=== PATIENT | female | born 2000 | race African-American/Black ===

== ENCOUNTER 2019-06-27 13:52 | Inpatient (IN) | payer OTHER ==
[2019-06-27 15:54] LABS: BASO % 0.6 % (0-2.0); EOS % 0.4 % (0-4.5); HEMATOCRIT 39.5 % (32.4-45.2); LYMPH % 14.7 % (8-40); MCH 28.5 pg (25.7-33.7); MCHC 32.9 g/dl (32.0-36.0); MEAN CELL VOLUME 86.8 fl (80-96); MEAN PLT VOLUME 8.9 fl (7.5-11.1); MONO % 6.3 % (3.8-10.2); PLATELET COUNT 214 K/MM3 (134-434); RBC 4.55 M/mm3 (3.60-5.2); RDW 14.4 % (11.6-15.6); WHITE BLOOD COUNT 8.4 K/mm3 (4.0-10.0)
[2019-06-27 16:07] LABS: INR 1.02 (0.83-1.09)
[2019-06-27 16:10] LABS: ACTIVATED PTT 30.8 SECONDS (25.2-36.5)
[2019-06-27] MEDS ORDERED: NALOXONE HCL 0.4 MG/ML VIAL IVPUSH PRN ×2 (16:40)
[2019-06-27 16:42] LABS: POTASSIUM 4.1 mmol/L (3.5-5.1)
--- NOTE | 2019-06-27 16:44 | HP ---
Past Medical History - Primary Care Physician PCP:: Campbell Domínguez - Admission Chief Complaint: 39 weeks, labor History of Present Illness: 18 yo f with hx of IUGR , has been follow up with MFM , c/o contraction, no rom, no bleeding, cx 4 cm 80 vx -2 mi, fhr cat 1, regular contraction q 2 min History Source: Patient Limitations to Obtaining History: No Limitations - Past Medical History ...: 1 ...Para: 0 - Past Surgical History Hx Myomectomy: No Hx Transabdominal Cerclage: No - Smoking History Have you smoked in the past 12 months: No - Alcohol/Substance Use Hx Alcohol Use: No History of Substance Use: reports: None - Social History Usual Living Arrangement: Yes: With Spouse History of Recent Travel: No Home Medications - Allergies Allergies/Adverse Reactions: Allergies Allergy/AdvReac Type Severity Reaction Status Date / Time Penicillins Allergy Mild Rash Verified 03/06/19 14:56 - Home Medications Home Medications: Ambulatory Orders Vitamin Tablet 1 tab PO DAILY 03/06/19 Ibuprofen [Motrin -] 600 mg PO QID #28 tablet 06/30/19 Review of Systems - Review of Systems Constitutional: reports: No Symptoms Eyes: reports: No Symptoms HENT: reports: No Symptoms Neck: reports: No Symptoms Cardiovascular: reports: No Symptoms Respiratory: reports: No Symptoms Gastrointestinal: reports: No Symptoms, Abdominal Pain Genitourinary: reports: No Symptoms Breasts: reports: No Symptoms Reported Musculoskeletal: reports: No Symptoms Integumentary: reports: No Symptoms Neurological: reports: No Symptoms Endocrine: reports: No Symptoms Hematology/Lymphatic: reports: No Symptoms Psychiatric: reports: No Symptoms Physical Exam - Maternity Constitutional: Yes: Well Nourished, No Distress, Calm Eyes: Yes: WNL, Conjunctiva Clear, EOM Intact HENT: Yes: WNL, Atraumatic, Normocephalic Neck: Yes: WNL, Supple, Trachea Midline Cardiovascular: Yes: WNL, Regular Rate and Rhythm Breast(s): Yes: WNL - Abdominal Exam/OB Fundal Height: 36 Number of Fetuses: Single Presentation: Vertex Contractions: Yes Regularity: Regular Intensity: Mod/Strong Monitor Mode: External Heart Rate Location: [facility] Category: I Accelerations: Non-Uniform Decelerations: None - Vaginal Exam/OB Vaginal Bleediing: No Speculum Exam: No Dilatation (cm): 4 Effacement (%): 80 Amniotic Membrane Status: Intact Presentation: Vertex/Position Station: -2 - Physical Exam Musculoskeletal: Yes: WNL Extremities: Yes: WNL Edema: Yes Edema: LLE: Trace, RLE: Trace Deep Tendon Reflex Grade: Normal +2 Psychiatric: Yes: WNL - Labs Lab Results: CBC, BMP 06/27/19 14:30 Hemorrhage Risk Assessment - Risk Factors Medium Risk Factors: Yes: None Risk Score: 1 Risk Level: Medium Risk Problem List - Problems (1) with 38 to 41 completed weeks gestation Code(s): OST0013 - (2) IUGR (intrauterine growth restriction) affecting care of mother Code(s): O36.5990 - MATERN CARE FOR OTH OR SUSP POOR FETL GRTH, UNSP TRI, UNSP Qualifiers: Fetus number: single or unspecified fetus Trimester: third trimester Qualified Code(s): O36.5930 - Maternal care for other known or suspected poor growth, third trimester, not applicable or unspecified (3) Labor established Code(s): GCC4969 - Assessment/Plan admit FHM wants epidural anesthesia . risks and ulternatives discussed
[2019-06-27] MEDS ORDERED: ELECTROLYTE-148 SOLN 1,000 ML IV SCH (16:45)
[2019-06-27] MEDS: FENTANYL/BUPIVACAINE/NS/PF - PCEA - 50 ML DISP.SYRIN EP SCH ×2 (16:55→20:24)
[2019-06-27] MEDS ORDERED: morphine SULFATE/PF 0.5 MG/ML (2cc Syringe - QUVA) ONE (17:13)
[2019-06-27] MEDS ORDERED: PHENYLEPHRINE HCL 10 MG/1 ML SINGLE DOSE VIAL ONE (17:26)
[2019-06-27] MEDS ORDERED: METHYLERGONOVINE MALEATE 0.2 MG/1 ML AMP IM PRN (18:29)
[2019-06-27] MEDS ORDERED: IBUPROFEN 800 MG/8 ML IJ IVPB PRN (18:29)
[2019-06-27] MEDS ORDERED: oxyCODONE HCL 5 MG TABLET PO PRN ×2 (18:29)
[2019-06-27] MEDS ORDERED: BENZOCAINE 28 GM HEMORRHOIDAL OINTMENT PR PRN (18:29)
[2019-06-27] MEDS ORDERED: WITCH HAZEL 50% (TUCKS) 40 PAD/JAR PAD TP PRN (18:29)
[2019-06-27] MEDS ORDERED: diphenhydrAMINE HCL 25 MG CAPSULE (FP) PO PRN (18:29)
[2019-06-27] MEDS ORDERED: IBUPROFEN 600 MG TABLET (FP) PO PRN (18:29)
[2019-06-27] MEDS ORDERED: BENZOCAINE 20% 57 GM BOTTLE TP PRN (18:29)
[2019-06-27] MEDS ORDERED: OXYTOCIN 20 UNITS in 0.9% NS 20 UNIT/1,000 ML INFUS.BAG IV SCH (18:30)
[2019-06-27] MEDS ORDERED: ACETAMINOPHEN 325 MG TABLET (FP) PO PRN (18:32)
--- NOTE | 2019-06-27 19:04 | PN ---
Progress Note (short form) - Note Progress Note: had variable decelration , cx 4 cm 80 vx -1 arom, thick meconium . , advised stat c/s Problem List - Problems (1) with 38 to 41 completed weeks gestation Code(s): BJP2835 - (2) IUGR (intrauterine growth restriction) affecting care of mother Code(s): O36.5990 - MATERN CARE FOR OTH OR SUSP POOR FETL GRTH, UNSP TRI, UNSP Qualifiers: Fetus number: single or unspecified fetus Trimester: third trimester Qualified Code(s): O36.5930 - Maternal care for other known or suspected poor growth, third trimester, not applicable or unspecified (3) Labor established Code(s): [id number] -
--- NOTE | 2019-06-27 19:13 | OP ---
Operative Note - Note: Operative Date: 06/27/19 Pre-Operative Diagnosis: iugr, thick meconium . Operation: primary LST c/s Findings: live baby boy , 9/9 . op . cord around neck once Surgeon: Campbell Domínguez Shafting Worker: Anusha Sellers Anesthesia: Spinal Specimens Removed: placenta Estimated Blood Loss (mls): 500 Drains & Tubes with Location: [facility] Operative Report Dictated: Yes
[2019-06-27] MEDS ORDERED: OXYTOCIN 20 UNITS in 0.9% NS 20 UNIT/1,000 ML INFUS.BAG IV ONE (19:54)
[2019-06-27 20:13] VITALS: BMI 23.7
[2019-06-28] MEDS: CEFAZOLIN 1 GM/D5W 1 GM/50 ML BAG IVPB SCH ×2 (01:35→10:32)
[2019-06-28] MEDS ORDERED: DEXTROSE 5%-LACTATED RINGERS 1,000 ML IV SCH (02:30)
--- NOTE | 2019-06-28 08:07 | OP ---
DATE OF OPERATION: 06/27/2019 PREOPERATIVE DIAGNOSIS: intrauterine growth retardation, labor, meconium amniotic fluid, and nonreassuring heart rate. POSTOPERATIVE DIAGNOSIS: intrauterine growth retardation, labor, meconium amniotic fluid, and nonreassuring heart rate. PROCEDURE: Primary low segment transverse section. SURGEON: Campbell Domínguez MD CSR RETAIL: Anusha Sellers MD ANESTHESIA: Spinal. ESTIMATED BLOOD LOSS: 500 mL. FINDINGS: A live baby boy. Apgars 9, 9. Cord around the neck. OP position. DESCRIPTION OF PROCEDURE: Patient was taken to the operating room under adequate spinal anesthesia. Abdomen and perineum was prepped and draped. Pfannenstiel abdominal skin incision was made. Abdominal wall was cut layer by layer until the peritoneum was exposed and incised. Upon entering the abdominal cavity, lower uterine segment was identified, and uterovesical fold of peritoneum established. Bladder was pushed down. Then with the lower blade of the Cypress retractor in the pelvis, a low transverse uterine incision was made. The incision was extended laterally with bandage scissors. Amniotic sac was entered. Thick meconium noted. Cord around the neck x1 reduced. Head delivered. Nasopharynx was suctioned. Anterior and posterior shoulders delivered without any difficulty. Live baby boy was delivered. Attended by massage coordinator. Apgars 9, 9. Placenta was delivered manually. Uterine cavity was cleaned of all remaining tissue. Uterine incision was closed in 2 layers, the 1st layer with 0 Biosyn continuous suture, the 2nd layer with 0 Biosyn imbricating the 1st layer. Bladder flap was closed with 0 Biosyn continuous suture. Both tubes and ovaries were checked and were normal. No active bleeding was seen. All of the lap pad, sponge, and instrument counts were correct, and peritoneum was closed with 0 Biosyn continuous suture. Muscles were brought together with interrupted sutures of 0 Biosyn. Fascia was closed with 0 Biosyn continuous suture, subcutaneous fat interrupted suture of 0 Biosyn, and the skin was closed with litzy. The patient tolerated the procedure well. Left the OR in good condition. Chichi [id number]
[2019-06-28 09:28] LABS: BASO % 0.1 % (0-2.0); EOS % 0.1 % (0-4.5); HEMATOCRIT 31.3 % (32.4-45.2); HEMOGLOBIN 10.4 GM/dL (10.7-15.3); LYMPH % 7.2 % (8-40); MCH 28.7 pg (25.7-33.7); MCHC 33.1 g/dl (32.0-36.0); MEAN CELL VOLUME 86.6 fl (80-96); MEAN PLT VOLUME 8.6 fl (7.5-11.1); MONO % 5.1 % (3.8-10.2); NEUT % 87.5 % (42.8-82.8); PLATELET COUNT 186 K/MM3 (134-434); RBC 3.61 M/mm3 (3.60-5.2); RDW 14.1 % (11.6-15.6); WHITE BLOOD COUNT 14.6 K/mm3 (4.0-10.0)
[2019-06-28] MEDS ORDERED: DIPHTH,PERTUSS(ACELL),TET 0.5 ML DISP.SYRIN IM ONE (10:30)
[2019-06-28] MEDS ORDERED: FLU VACC QS2019-20(6MOS UP)/PF 60 MCG/0.5 ML SYRINGE IM ONE (10:30)
--- NOTE | 2019-06-28 10:30 | PN ---
Progress Note (short form) - Note Progress Note: pod 1, s/p c/s ,doing well, no c/o abdomen soft, no distension, no va incision dry, clean no calf tenderness plan ambulate , advance diet CBC, BMP 06/28/19 08:37 06/27/19 14:30 Last Vital Signs Temp Pulse Resp BP Pulse Ox 98.6 F 84 20 115/73 100 06/28/19 05:30 06/28/19 05:30 06/28/19 06:00 06/28/19 05:30 06/27/19 19:05 repeat cbc day 3 Problem List - Problems (1) with 38 to 41 completed weeks gestation Code(s): [id number] - (2) IUGR (intrauterine growth restriction) affecting care of mother Code(s): O36.5990 - MATERN CARE FOR OTH OR SUSP POOR FETL GRTH, UNSP TRI, UNSP Qualifiers: Fetus number: single or unspecified fetus Trimester: third trimester Qualified Code(s): O36.5930 - Maternal care for other known or suspected poor growth, third trimester, not applicable or unspecified (3) Labor established Code(s): [id number] -
[2019-06-28] MEDS: SIMETHICONE 80 MG TAB.CHEW (FP) PO PRN (14:41)
[2019-06-28] MEDS ORDERED: BISACODYL 10 MG SUPP.RECT RC PRN (18:29)
[2019-06-29] MEDS: ACETAMINOPHEN 650 MG/20.3 ML ORAL SOLUTION (CUPS) PO PRN ×3 (00:20→19:06)
[2019-06-29] MEDS: IBUPROFEN 100 MG/5 ML UNIT DOSE CUPS PO PRN ×3 (00:21→19:05)
--- NOTE | 2019-06-29 06:55 | PN ---
Progress Note, Physician Chief Complaint: s/p c section under spinal anesthesia History of Present Illness: duramorph for post op pain control, post op day one - Current Medication List Current Medications: Active Medications Acetaminophen (Tylenol Oral Solution -) 650 mg PO Q4H PRN PRN Reason: PAIN SCALE 6-10 Last Admin: 06/29/19 00:20 Dose: 650 mg Benzocaine (Americaine 20% [place] -) 1 spray TP PRN PRN PRN Reason: Pain - Topical Benzocaine (Americaine Ointment -) 1 applic [place] PRN PRN PRN Reason: Pain - Topical Bisacodyl (Dulcolax Suppository -) 10 mg RC PRN PRN PRN Reason: CONSTIPATION Diphenhydramine HCl (Benadryl -) 25 mg PO Q8H PRN PRN Reason: FOR ITCHING Diphtheria/Tetanus/Acell Pertussis (Boostrix -) 0.5 ml IM .ONCE ONE Stop: 06/29/19 10:46 Fentanyl/Bupivacaine/Sodium Chlor (Bupivicaine 0.125%/Fentanyl 2mcg/Ml Pcea) 50 ml EP ASDIR BRET; Protocol Last Admin: 06/27/19 16:55 Dose: 50 ml Fentanyl/Bupivacaine/Sodium Chlor (Bupivicaine 0.125%/Fentanyl 2mcg/Ml Pcea) 50 ml EP ASDIR BRET; Protocol Last Admin: 06/27/19 20:24 Dose: Not Given Parenteral Electrolytes (Plasma-Lyte 148 -) 1,000 mls @ 125 mls/hr IV ASDIR BRET Last Admin: 06/27/19 15:15 Dose: 125 mls/hr Dextrose/Lactated Ringer's (D5-Lr -) 1,000 mls @ 125 mls/hr IV ASDIR BRET Ibuprofen (Caldolor Injection -) 800 mg IVPB Q6H PRN PRN Reason: PAIN > 5 if PO not effective. Last Admin: 06/28/19 09:05 Dose: 800 mg Ibuprofen (Motrin Oral Suspension -) 600 mg PO Q4H PRN PRN Reason: PAIN SCALE 1-3 Last Admin: 06/29/19 00:21 Dose: 600 mg Influenza Virus Vaccine Quadrival (Fluarix Quad Syringe) 60 mcg IM .ONCE ONE Stop: 06/29/19 10:31 Methylergonovine Maleate (Methergine Injection -) 0.2 mg IM Q4H PRN PRN Reason: EXCESSIVE BLEEDING Naloxone HCl (Narcan -) 0.4 mg IVPUSH PRN PRN PRN Reason: Sedation Naloxone HCl (Narcan -) 0.4 mg IVPUSH PRN PRN PRN Reason: Sedation Oxycodone HCl (Roxicodone -) 5 mg PO Q4H PRN PRN Reason: PAIN LEVEL 4 - 6 Oxycodone HCl (Roxicodone -) 10 mg PO Q4H PRN PRN Reason: PAIN LEVEL 7 - 10 Senna/Docusate Sodium (Pericolace -) 2 tablet PO HS PRN PRN Reason: CONSTIPATION Simethicone (Mylicon -) 80 mg PO Q4H PRN PRN Reason: GAS Last Admin: 06/28/19 14:41 Dose: 80 mg Witch [place]/Glycerin (Tucks Pads -) 1 pad TP PRN PRN PRN Reason: Pain - Topical - Objective Vital Signs: Vital Signs Temperature 97.8 F 06/28/19 22:12 Pulse Rate 91 H 06/28/19 22:12 Respiratory Rate 18 06/28/19 22:12 Blood Pressure 135/85 06/28/19 22:12 O2 Sat by Pulse Oximetry (%) 100 06/27/19 19:05 Constitutional: Yes: Well Nourished Cardiovascular: Yes: WNL Respiratory: Yes: WNL Gastrointestinal: Yes: WNL Labs: CBC, BMP 06/28/19 08:37 06/27/19 14:30 INR, PTT INR 1.02 (0.83-1.09) 06/27/19 14:30 Assessment/Plan No adverse anesthetic complications, nausea vomiting pain and itching controlled , dept of anesthesiology will sign off care at this time
[2019-06-29] MEDS ORDERED: FLU VACC QS2019-20(6MOS UP)/PF 60 MCG/0.5 ML SYRINGE IM ONE (10:00)
[2019-06-29] MEDS ORDERED: FLU VACCINE QUAD 60 MCG/0.5 ML (MDV 19-20) IM ONE (10:00)
[2019-06-29] MEDS ORDERED: DIPHTH,PERTUSS(ACELL),TET 0.5 ML DISP.SYRIN IM ONE ×2 (10:00)
[2019-06-29] MEDS: ENOXAPARIN NA (PORCINE) 40 MG/0.4 ML DISP.SYRIN SQ SCH (10:00)
--- NOTE | 2019-06-29 10:59 | PN ---
Progress Note (short form) - Note Progress Note: pod 1 s/p c/s , doing well, no c/o , void ok , ambulating, passing gas CBC, BMP 06/28/19 08:37 06/27/19 14:30 abdomen soft, no distension, no cva incision dry, clean , no bleeding ,no discharge no calf tenderness plan ambulate, cbc in am Problem List - Problems (1) with 38 to 41 completed weeks gestation Code(s): [id number] - (2) IUGR (intrauterine growth restriction) affecting care of mother Code(s): O36.5990 - MATERN CARE FOR OTH OR SUSP POOR FETL GRTH, UNSP TRI, UNSP Qualifiers: Fetus number: single or unspecified fetus Trimester: third trimester Qualified Code(s): O36.5930 - Maternal care for other known or suspected poor growth, third trimester, not applicable or unspecified (3) Labor established Code(s): [id number] -
[2019-06-29] MEDS ORDERED: SENNOSIDES/DOCUSATE COMBO (SENNA PLUS) TABLET (UD) PO PRN (22:00)
[2019-06-30] MEDS: IBUPROFEN 100 MG/5 ML UNIT DOSE CUPS PO PRN ×2 (05:20→13:37)
[2019-06-30] MEDS: ACETAMINOPHEN 650 MG/20.3 ML ORAL SOLUTION (CUPS) PO PRN ×2 (05:20→11:42)
[2019-06-30] MEDS: SIMETHICONE 80 MG TAB.CHEW (FP) PO PRN ×2 (05:20→11:42)
[2019-06-30] MEDS: FENTANYL/BUPIVACAINE/NS/PF - PCEA - 50 ML DISP.SYRIN EP SCH ×4 (07:13→07:16)
[2019-06-30 07:58] LABS: BASO % 0.2 % (0-2.0); EOS % 1.7 % (0-4.5); HEMOGLOBIN 9.8 GM/dL (10.7-15.3); MCH 28.9 pg (25.7-33.7); MCHC 33.6 g/dl (32.0-36.0); MEAN CELL VOLUME 85.8 fl (80-96); MEAN PLT VOLUME 8.8 fl (7.5-11.1); MONO % 7.6 % (3.8-10.2); NEUT % 71.5 % (42.8-82.8); PLATELET COUNT 198 K/MM3 (134-434); RBC 3.38 M/mm3 (3.60-5.2); RDW 14.4 % (11.6-15.6); WHITE BLOOD COUNT 7.1 K/mm3 (4.0-10.0)
[2019-06-30] MEDS: ENOXAPARIN NA (PORCINE) 40 MG/0.4 ML DISP.SYRIN SQ SCH (10:08)
[2019-06-30 12:42] VITALS: BP 131/79; PULSE 91; TEMP 98.2
--- NOTE | 2019-06-30 13:56 | DS ---
Physical Exam-COMMERCIAL REPORTER Vital Signs: Vital Signs Temperature 98.2 F 06/30/19 10:00 Pulse Rate 91 H 06/30/19 10:00 Respiratory Rate 20 06/30/19 10:00 Blood Pressure 131/79 06/30/19 10:00 O2 Sat by Pulse Oximetry (%) 100 06/27/19 19:05 Constitutional: Yes: Well Nourished, No Distress, Calm Eyes: Yes: WNL, Conjunctiva Clear, EOM Intact HENT: Yes: WNL, Atraumatic, Normocephalic Neck: Yes: WNL, Supple, Trachea Midline Cardiovascular: Yes: WNL, Regular Rate and Rhythm Respiratory: Yes: WNL, Regular, CTA Bilaterally Gastrointestinal: Yes: WNL ...Rectal Exam: Yes: WNL Renal/: Yes: WNL ....Post : Yes: Uterus firm, Uterus non-tender, Slight lochia rubra Breast(s): Yes: WNL Musculoskeletal: Yes: WNL Extremities: Yes: WNL Integumentary: Yes: WNL Wound/Incision: Yes: Clean/Dry, Well Approximated, [place] Intact Neurological: Yes: WNL, Alert, Oriented ...Motor Strength: WNL Psychiatric: Yes: WNL, Alert, Oriented Labs: CBC, BMP 06/30/19 06:21 06/27/19 14:30 Delivery - Delivery Section: Primary, Low Flap Transverse Type of Anesthesia: Spinal EBL (cc): 500 Delivery, Single - Stages of Labor Date 1st Stage Initiatied: 06/27/19 Time 1st Stage Initiated: 11:00 Date of Delivery: 06/27/19 Time of Delivery: 17:23 Time Placenta Delivered: 17:24 Placenta: Yes: Expressed - Condition of Infant Supervisor Brine/Instructional Consultant Present: Yes Name: Yanelis Carney Gender: Male Weight: 6 lb 2 oz Position: OP Total Hours ROM (Hrs/Mins): 0Hrs/24Mins - 1 Minute Total Score: 9 5 Minutes Total Score: 9 - Feeding Plan Initial Plan: Exclusive throughout hospitalization Discharge Summary Reason For Visit: LABOR ADMISSION Current Active Problems IUGR (intrauterine growth restriction) affecting care of mother (Acute) Labor established (Acute) with 38 to 41 completed weeks gestation (Acute) Procedures: Principal: primary LST c/s Hospital Course: no complication - Instructions - Home Medications Comprehensive Discharge Medication List: Ambulatory Orders Vitamin Tablet 1 tab PO DAILY 03/06/19
--- NOTE | 2019-07-01 17:09 | PATH ---
Surgical Pathology Report Patient Name: PORTIA ROPER Med. Rec. #: [id number] /Age/Gender: 2000 (Age: 18) / F Account: [id number] Location: [facility] OBS/BILINGUAL SALES CONSULTANT Taken: 06/27/2019 Received: 06/30/2019 Reported: 07/01/2019 Physicians: Campbell Domínguez M.D. Specimen(s) Received PLACENTA Clinical History , 39.5 weeks, nonreassuring heart rate Final Diagnosis PLACENTA, SECTION: 416 G THIRD TRIMESTER PLACENTA. MILD TO MODERATE ACUTE CHORIOAMNIONITIS. TRIVASCULAR UMBILICAL CORD WITH ACUTE PANVASCULITIS AND ASSOCIATED FUNISITIS. FOCAL INTRAPARENCHYMAL INFARCT (~10% OF PLACENTAL SURFACE). PLACENTAL MEMBRANES WITH MECONIUM-LADEN MACROPHAGES. Electronically Signed Nikki Farr M.D. Gross Description The specimen is received fresh labeled placenta and is a 416 gram, 17 x 15 x 1.5 cm. placenta with attached membranes and umbilical cord. The attached membranes are yellow-green, meconium stained, and insert marginally. The umbilical cord measures 28 cm. in length and averages 1.5 cm. in diameter. The cord inserts marginally. No true knots or strictures are identified. Cut surface of the umbilical cord reveals 3 vessels. The surface is juan-blue with minimal fibrin deposition and appropriate caliber vessels. The maternal surface is red-brown with focal defects. Sectioning reveals a white-hernandez nodular lesion measuring 1.8 x 1.5 cm. Remainder of parenchyma is red-brown and spongy. Clipper Automatic sections are submitted in three cassettes as follows: 1- membrane rolls and umbilical cord; 2-3- full thickness sections of placenta; 4-lesion. MLSZ/06/30/2019 sanml/06/30/2019
== END 2019-06-30 15:40 | disposition home or self-care (01) | DRG 540 ==
LOC: JLDR 13:52 → J3W 21:00
PROVIDERS: ADMIT Obstetrics & Gynecology; ATTEND Obstetrics & Gynecology
PROC: 10D00Z1 Extraction of Products of Conception, Low, Open Approach (ICD-10-PCS; principal; 2019-06-27)
DX: O36.8330 Maternal care for abnormalities of the fetal heart rate or rhythm, third trimester, not applicable or unspecified (principal); O36.5930 Maternal care for other known or suspected poor fetal growth, third trimester, not applicable or unspecified; O41.1230 Chorioamnionitis, third trimester, not applicable or unspecified; Z3A.39 39 weeks gestation of pregnancy; Z37.0 Single live birth
CPT/HCPCS: 36415; 36600; 80048; 82803; 85025; 85610; 85730; 86593; 86850; 86900; 86901; 88307-TC; 90686; 90715

== ENCOUNTER 2019-08-09 12:32 | Emergency (ER) | payer OTHER ==
[2019-08-09 12:38] VITALS: BP 106/68; PULSE 97; TEMP 98.2; BMI 24.4
[2019-08-09] MEDS ORDERED: IBUPROFEN 100 MG/5 ML UNIT DOSE CUPS PO ONE (14:09)
--- NOTE | 2019-08-09 14:11 | PDOC ---
History of Present Illness - General Chief Complaint: Cold Symptoms Stated Complaint: COLD SYMPTOMS Time Seen by Provider: 08/09/19 12:39 History Source: Patient Exam Limitations: No Limitations Past History - Travel Traveled outside of the country in the last 30 days: No Close contact w/someone who was outside of country & ill: No - Past Medical History Allergies/Adverse Reactions: Allergies Allergy/AdvReac Type Severity Reaction Status Date / Time Penicillins Allergy Mild Rash Verified 08/09/19 12:38 Home Medications: Ambulatory Orders Vitamin Tablet 1 tab PO DAILY 03/06/19 Ibuprofen [Motrin -] 600 mg PO QID #28 tablet 06/30/19 Ibuprofen Oral Suspension [Motrin Oral Suspension -] 600 mg PO Q6H #400 ml 08/09 Asthma: Yes (no recent attacks) Cancer: No Cardiac Disorders: No COPD: No Diabetes: No HTN: No Seizures: No Thyroid Disease: No - Psycho Social/Smoking Cessation Hx Smoking History: Never smoked Have you smoked in the past 12 months: No Hx Alcohol Use: No Drug/Substance Use Hx: No Hx Substance Use Treatment: No Review of Systems - Review of Systems Able to Perform ROS?: Yes Comments:: 08/09/19 14:07 CONSTITUTIONAL: Absent: fever, chills, diaphoresis, generalized weakness, malaise, loss of appetite HEENT: Present: sore throat, nasal congestion Absent: rhinorrhea, nasal congestion, throat pain, throat swelling, difficulty swallowing, mouth swelling, ear pain, eye pain, visual Changes RESPIRATORY: Absent: cough, shortness of breath, dyspnea with exertion, orthopnea, wheezing, stridor, hemoptysis SKIN: Absent: rash, itching, pallor NEUROLOGIC: Absent: headache, focal weakness or paresthesias, dizziness, unsteady gait, seizure, mental status changes, bladder or bowel incontinence PSYCHIATRIC: Absent: anxiety, depression, suicidal or homicidal ideation, hallucinations. Is the patient limited [place] proficient: No *Physical Exam - Vital Signs Last Vital Signs Temp Pulse Resp BP Pulse Ox 98.2 F 97 H 18 106/68 99 08/09/19 12:36 08/09/19 12:36 08/09/19 12:36 08/09/19 12:36 08/09/19 12:36 - Physical Exam Comments: 08/09/19 19:25 GENERAL: The patient is awake, alert, and fully oriented, in no acute distress. HEAD: Normal with no signs of trauma. EYES: Pupils equal, round and reactive to light, extraocular movements intact, sclera anicteric, conjunctiva clear. HEENT: No nasal congestion or rhinorrhea. No sinus Tenderness. Mucous membranes are moist. No tonsillar erythema, exudate or edema. Uvula is midline. No TM bulging , dullness or erythema EXTREMITIES: Normal range of motion, no edema. NEUROLOGICAL: Normal speech, normal gait. PSYCH: Normal mood, normal affect. SKIN: Dry skin surrounding the nipples b/l. Warm, Dry, normal turgor, no rashes or lesions noted. Medical Decision Making - Medical Decision Making 08/09/19 19:26 The patient is a 18-year-old female with no past medical history presents the ER today for sore throat for 3 days with associated nasal congestion. Denies difficulty swallowing, shortness of breath and difficulty breathing. She also notes that she has some nipple dryness. She gave approximately 1 month ago and has recently stopped breast-feeding. A/P: Pharyngitis On exam throat is nonerythematous without exudate or edema. Rapid strep is negative Patient with nipple chafing on exam, recommend Isabel bees ointment or other barrier to protect the skin Most likely a viral pharyngitis discharged home with supportive therapy. Return precautions given. I discussed the physical exam findings, ancillary test results and final diagnoses with the patient. I answered all of the patient's questions. The patient was satisfied with the care received and felt comfortable with the discharge plan and treatment plan. The Patient agrees to follow up with the primary care physician/specialist within 24-72 hours. Return precautions were given. Discharge - Discharge Information Problems reviewed: Yes Clinical Impression/Diagnosis: Pharyngitis Qualifiers: Pharyngitis/tonsillitis etiology: unspecified etiology Qualified Code(s): J02.9 - Acute pharyngitis, unspecified Condition: Stable Disposition: HOME - Admission No - Additional Discharge Information Prescriptions: Ibuprofen Oral Suspension [Motrin Oral Suspension -] 600 mg PO Q6H #400 ml - Follow up/Referral Referrals: Kristian Morales MD [Primary Care Provider] - - Patient Discharge Instructions Patient Printed Discharge Instructions: DI for Viral Pharyngitis Additional Instructions: You have a sore throat or pharyngitis. Rapid strep testing was negative today. You may take Motrin 600 mg every 6 hours as needed for pain. Please do warm water gargles and cough drops to help with your pain. Change your toothbrush when you started feeling better. Follow-up with your primary care doctor. Return to the ER for fever, difficulty breathing, difficulty swallowing, or if you have any changes in your symptoms. - Post Discharge Activity Work/Back to School Note: Back to Work
[2019-08-09] MEDS ORDERED: IBUPROFEN 100 MG/5 ML UNIT DOSE CUPS ONE (14:22)
[2019-08-10] MEDS ORDERED: PSEUDOEPHEDRINE HCL 30 MG TABLET PO ONE (14:10)
== END 2019-08-09 15:25 | disposition home or self-care (01) ==
LOC: JERFT 12:32
DX: J02.9 Acute pharyngitis, unspecified (principal); B97.89 Other viral agents as the cause of diseases classified elsewhere; Z88.0 Allergy status to penicillin
CPT/HCPCS: 87070; 87880; 99281-25

== ENCOUNTER 2019-10-16 16:51 | Emergency (ER) | payer OTHER ==
--- NOTE | 2019-10-16 17:03 | PDOC ---
Rapid Medical Evaluation Time Seen by Provider: 10/16/19 17:01 Medical Evaluation: Allergies Allergy/AdvReac Type Severity Reaction Status Date / Time Penicillins Allergy Mild Rash Verified 08/09/19 12:38 10/16/19 17:01 CC: nasal congestion, anorexia, sore throat, moist cough PE: VSS. AF. OP mildly erythematous. Uvula midline. Lungs CTAB. Orders: nothing Patient will proceed to ER for complete evaluation. Discharge Disposition - Diagnosis Nasopharyngitis acute - Referrals - Patient Instructions - Post Discharge Activity
[2019-10-16 17:04] VITALS: BP 136/81; PULSE 102; TEMP 98.5; BMI 25.2
--- NOTE | 2019-10-16 17:44 | PDOC ---
History of Present Illness - General Chief Complaint: Cold Symptoms Stated Complaint: COLD SYMPTOMS Time Seen by Provider: 10/16/19 17:01 History Source: Patient - History of Present Illness Initial Comments: 10/16/19 18:32 Chief complaint: Fever and cough Patient is a 18-year-old female with a history of asthma, not having any wheezing now who has fever and cough for 2 days. Patient has not taken anything for the fever. Patient is drinking and eating a little bit GENERAL/CONSTITUTIONAL: +fever, weakness. No: Dizziness HEAD, EYES, EARS, NOSE AND THROAT: No change in vision. No ear pain or discharge. No sore throat. CARDIOVASCULAR: No chest pain RESPIRATORY: No shortness of breath +cough GASTROINTESTINAL: No pain, nausea, vomiting, diarrhea or constipation GENITOURINARY: No dysuria MUSCULOSKELETAL: No neck or back pain SKIN: No rash NEUROLOGIC: No headache, vertigo, loss of consciousness, or loss of sensation. GENERAL: The patient is awake, alert, and fully oriented, in no acute distress. HEAD: Normal with no signs of trauma. EYES: Pupils equal, round and reactive to light, sclera anicteric, conjunctiva clear. ENT: pharynx: no erythema, no exudate, uvula midline, + clear rhinorrhea NECK: supple CHEST: clear, nontender, rr ABD: soft, nontender BACK: no tenderness or signs of injury EXTREMITIES: Normal range of motion, no edema. NEUROLOGICAL: Normal speech, normal gait. SKIN: Warm, Dry Past History - Past Medical History Allergies/Adverse Reactions: Allergies Allergy/AdvReac Type Severity Reaction Status Date / Time Penicillins Allergy Mild Rash Verified 10/16/19 17:04 Home Medications: Ambulatory Orders Vitamin Tablet 1 tab PO DAILY 03/06/19 Ibuprofen [Motrin -] 600 mg PO QID #28 tablet 06/30/19 Ibuprofen Oral Suspension [Motrin Oral Suspension -] 600 mg PO Q6H #400 ml 08/09 Asthma: Yes (no recent attacks) Cancer: No Cardiac Disorders: No COPD: No Diabetes: No HTN: No Seizures: No Thyroid Disease: No - Immunization History Immunization Up to Date: Yes - Psycho Social/Smoking Cessation Hx Smoking History: Never smoked Have you smoked in the past 12 months: No Information on smoking cessation initiated: No Hx Alcohol Use: No Drug/Substance Use Hx: No Hx Substance Use Treatment: No *Physical Exam - Vital Signs Last Vital Signs Temp Pulse Resp BP Pulse Ox 98.5 F 102 H 17 136/81 98 10/16/19 17:01 10/16/19 17:01 10/16/19 17:01 10/16/19 17:01 10/16/19 17:01 Medical Decision Making - Medical Decision Making 10/16/19 18:33 18-year-old with history of asthma, with flulike symptoms for 2 days. Discussed with patient pros and cons of Tamiflu. Will give patient Tamiflu. Discussed issues, findings, results, applicable medications and treatments and follow-up. All these were understood and all questions were answered After patient was given discharge paperwork, she requested flu test. We did discuss that there would be no change in management but she would like it. 10/16/19 19:08 Flu negative, patient was advised Discharge - Discharge Information Problems reviewed: Yes Clinical Impression/Diagnosis: Upper respiratory infection Qualifiers: URI type: unspecified URI Qualified Code(s): J06.9 - Acute upper respiratory infection, unspecified Condition: Stable Disposition: HOME - Admission No - Follow up/Referral Referrals: Kristian Morales MD [Primary Care Provider] - - Patient Discharge Instructions Patient Printed Discharge Instructions: DI for Viral Upper Respiratory Infection -- Adult Additional Instructions: Drink 2-3 L of water daily Take Tamiflu as directed until finished Take Tylenol 650 mg every 4 hours or Motrin 600 mg every 6 hours for fever and pain Return to the nearest ER if short of breath, unable to swallow or feeling sicker Followup with your doctor in one to 2 days - Post Discharge Activity
[2019-10-16] MEDS ORDERED: IBUPROFEN 100 MG/5 ML UNIT DOSE CUPS PO ONE (17:45)
[2019-10-16] MEDS ORDERED: IBUPROFEN 100 MG/5 ML UNIT DOSE CUPS ONE (17:46)
== END 2019-10-16 18:45 | disposition home or self-care (01) ==
LOC: JERFT 16:51
DX: J06.9 Acute upper respiratory infection, unspecified (principal); B97.89 Other viral agents as the cause of diseases classified elsewhere; Z88.0 Allergy status to penicillin
CPT/HCPCS: 87804; 99281-25

== ENCOUNTER 2022-02-03 14:58 | Emergency (ER) | payer OTHER ==
[2022-02-03 15:07] VITALS: BP 121/61; PULSE 112; TEMP 97.9; BMI 27.0
[2022-02-03] MEDS ORDERED: KETOROLAC TROMETHAMINE 30 MG/1 ML VIAL IM ONE (15:42)
[2022-02-03] MEDS ORDERED: CYCLOBENZAPRINE HCL 10 MG TABLET (FP) PO ONE (15:43)
[2022-02-03] MEDS ORDERED: LIDOCAINE 5% TOPICAL PATCH TP ONE (15:43)
[2022-02-03] MEDS ORDERED: KETOROLAC TROMETHAMINE 30 MG/1 ML VIAL ONE (15:45)
[2022-02-03] MEDS ORDERED: CYCLOBENZAPRINE HCL 10 MG TABLET (FP) ONE (15:45)
[2022-02-03] MEDS ORDERED: LIDOCAINE 5% TOPICAL PATCH ONE (15:45)
== END 2022-02-03 16:17 | disposition home or self-care (01) ==
LOC: JERFT 14:58
PROC: 3E023GC Introduction of Other Therapeutic Substance into Muscle, Percutaneous Approach (ICD-10-PCS; principal; 2022-02-03)
DX: M54.50 Low back pain, unspecified (principal); V49.50XA Passenger injured in collision with unspecified motor vehicles in traffic accident, initial encounter
CPT/HCPCS: 99284-25

== ENCOUNTER 2022-05-17 11:39 | Emergency (ER) | payer OTHER ==
[2022-05-17 11:44] VITALS: BP 123/75; PULSE 84; RESP 18; TEMP 98.2; BMI 24.4
[2022-05-17] MEDS ORDERED: SODIUM CHLORIDE 1,000 ML IV STA (13:03)
[2022-05-17] MEDS ORDERED: FAMOTIDINE 20 MG/50 ML IVPB 20 MG/50 ML MG IVPB ONE ×2 (13:03→13:11)
[2022-05-17] MEDS ORDERED: PANTOPRAZOLE SODIUM 40 MG VIAL IVPB ONE (13:03)
[2022-05-17] MEDS ORDERED: ONDANSETRON 4 MG/2 ML VIAL IVPUSH ONE (13:04)
[2022-05-17] MEDS ORDERED: PANTOPRAZOLE SODIUM 40 MG/100 ML BAG IVPB ONE (13:11)
[2022-05-17] MEDS ORDERED: ONDANSETRON 4 MG/2 ML VIAL ONE (13:11)
[2022-05-17 13:41] LABS: BASO % 0.9 % (0-2.0); EOS % 0.9 % (0-4.5); HEMATOCRIT 39.2 % (32.4-45.2); HEMOGLOBIN 13.6 GM/dL (10.7-15.3); LYMPH % 50.3 % (8-40); MCH 30.2 pg (25.7-33.7); MCHC 34.6 g/dl (32.0-36.0); MEAN CELL VOLUME 87.4 fl (80-96); MEAN PLT VOLUME 8.3 fl (7.5-11.1); MONO % 7.5 % (3.8-10.2); NEUT % 40.4 % (42.8-82.8); PLATELET COUNT 207 10^3/uL (134-434); RBC 4.49 M/mm3 (3.60-5.2); RDW 13.9 % (11.6-15.6); WHITE BLOOD COUNT 5.2 K/mm3 (4.0-10.0)
[2022-05-17 13:48] LABS: EPI CELLS 18 /uL (0-25.1); HYALINE CASTS 3 /uL (0-3.1); PH,URINE 6.5 (5.0-8.0); URINE APPEARANCE CLEAR; URINE BACTERIA 107 /uL (0-1359); URINE BILIRUBIN NEGATIVE (NEGATIVE); URINE COLOR DK YELLOW; URINE GLUCOSE (UA) NEGATIVE (NEGATIVE); URINE KETONE 1+ (NEGATIVE); URINE LEUK ESTERASE NEGATIVE (NEGATIVE); URINE NITRITE NEGATIVE (NEGATIVE); URINE PROTEIN 1+ (NEGATIVE); URINE RBC 43 /uL (0-23.9); URINE WBC 17 /uL (0-25.8)
[2022-05-17 14:30] LABS: ALBUMIN 4.2 g/dl (3.4-5.0); CALCIUM 9.2 mg/dL (8.5-10.1)
[2022-05-17 14:31] LABS: BLOOD UREA NITROGEN 5.6 mg/dL (7-18)
[2022-05-17 14:33] LABS: CREATININE 0.7 mg/dL (0.55-1.3)
[2022-05-17 14:35] LABS: TOT PROT 8.3 g/dl (6.4-8.2)
== END 2022-05-17 15:02 | disposition home or self-care (01) ==
LOC: JER 11:39
PROC: 3E033NZ Introduction of Analgesics, Hypnotics, Sedatives into Peripheral Vein, Percutaneous Approach (ICD-10-PCS; principal; 2022-05-17)
PROC: 3E033GC Introduction of Other Therapeutic Substance into Peripheral Vein, Percutaneous Approach (ICD-10-PCS; 2022-05-17)
PROC: 3E033GC Introduction of Other Therapeutic Substance into Peripheral Vein, Percutaneous Approach (ICD-10-PCS; 2022-05-17)
PROC: 3E0337Z Introduction of Electrolytic and Water Balance Substance into Peripheral Vein, Percutaneous Approach (ICD-10-PCS; 2022-05-17)
DX: K21.9 Gastro-esophageal reflux disease without esophagitis (principal)
CPT/HCPCS: 36415; 80053; 81003; 83690; 84703; 85025; 87086; 99284-25

== ENCOUNTER 2022-06-18 10:47 | Emergency (ER) | payer OTHER ==
[2022-06-18 10:50] VITALS: BP 122/83; PULSE 85; RESP 18; TEMP 98.2
[2022-06-18] MEDS ORDERED: KETOROLAC TROMETHAMINE 60 MG/2 ML VIAL IM ONE (11:44)
[2022-06-18] MEDS ORDERED: LIDOCAINE 5% TOPICAL PATCH TP ONE (11:44)
[2022-06-18] MEDS ORDERED: FAMOTIDINE 20 MG TABLET PO ONE (11:44)
[2022-06-18] MEDS ORDERED: ONDANSETRON *ODT* 4 MG TABLET SL ONE (11:44)
[2022-06-18] MEDS ORDERED: ACETAMINOPHEN 325 MG TABLET (FP) PO ONE (11:44)
[2022-06-18] MEDS ORDERED: METHOCARBAMOL 500 MG TABLET PO ONE (11:45)
[2022-06-18] MEDS ORDERED: LIDOCAINE 5% TOPICAL PATCH ONE (11:49)
[2022-06-18] MEDS ORDERED: ACETAMINOPHEN 325 MG TABLET (FP) ONE (11:49)
[2022-06-18] MEDS ORDERED: METHOCARBAMOL 500 MG TABLET ONE (11:49)
[2022-06-18] MEDS ORDERED: ONDANSETRON *ODT* 4 MG TABLET ONE (11:49)
[2022-06-18] MEDS ORDERED: FAMOTIDINE 20 MG TABLET ONE (11:49)
[2022-06-18] MEDS ORDERED: KETOROLAC TROMETHAMINE 30 MG/1 ML VIAL ONE (11:49)
== END 2022-06-18 13:29 | disposition home or self-care (01) ==
LOC: JER 10:47 → JERFT 10:47
PROC: 3E0233Z Introduction of Anti-inflammatory into Muscle, Percutaneous Approach (ICD-10-PCS; principal; 2022-06-18)
DX: M54.50 Low back pain, unspecified (principal)
CPT/HCPCS: 72100-TC-FY; 96372; 99284-25; Q0162

== ENCOUNTER 2022-07-07 09:37 | Emergency (ER) | payer OTHER ==
[2022-07-07 10:33] VITALS: BP 135/88; PULSE 95; RESP 16; TEMP 99; BMI 19.2
== END 2022-07-07 12:10 | disposition home or self-care (01) ==
LOC: JER 09:37
DX: U07.1 COVID-19 (principal); J06.9 Acute upper respiratory infection, unspecified
CPT/HCPCS: 0241U-QW; 99283-25

== ENCOUNTER 2023-05-07 17:09 | Emergency (ER) | payer OTHER ==
[2023-05-07 17:25] VITALS: BP 115/70; PULSE 79; RESP 18; TEMP 98.2; BMI 26.3
[2023-05-07] MEDS ORDERED: ACETAMINOPHEN 500 MG TABLET (FP) PO ONE (18:02)
[2023-05-07] MEDS ORDERED: ACETAMINOPHEN 1000 MG/100 ML BAG IVPB ONE (18:03)
[2023-05-07] MEDS ORDERED: SODIUM CHLORIDE 0.9% 500 ML INFUS.BAG IV ONE (18:14)
[2023-05-07] MEDS ORDERED: ACETAMINOPHEN INJECTION 100 ML IVPB ONE (18:29)
[2023-05-07] MEDS ORDERED: KETOROLAC TROMETHAMINE 30 MG/1 ML VIAL IVPUSH ONE (19:20)
[2023-05-07] MEDS ORDERED: FLUTICASONE PROP 0.05% 16 GM NASAL SPRAY NS ONE (19:20)
[2023-05-07 19:21] LABS: BASO % 0.7 % (0-2.0); EOS % 3.6 % (0-4.5); HEMATOCRIT 42.2 % (32.4-45.2); HEMOGLOBIN 14.3 GM/dL (10.7-15.3); LYMPH % 47.5 % (8-40); MCH 29.8 pg (25.7-33.7); MCHC 33.9 g/dl (32.0-36.0); MEAN CELL VOLUME 87.9 fl (80-96); MEAN PLT VOLUME 8.1 fl (7.5-11.1); MONO % 8.7 % (3.8-10.2); NEUT % 39.5 % (42.8-82.8); PLATELET COUNT 249 10^3/uL (134-434); RDW 13.8 % (11.6-15.6)
[2023-05-07] MEDS ORDERED: KETOROLAC TROMETHAMINE 15 MG/ML VIAL ONE (19:28)
[2023-05-07] MEDS ORDERED: PSEUDOEPHEDRINE HCL 60 MG TABLET ONE (19:28)
[2023-05-07] MEDS ORDERED: PSEUDOEPHEDRINE HCL 60 MG TABLET PO ONE (19:30)
[2023-05-07 19:33] LABS: ALBUMIN 3.7 g/dl (3.4-5.0); BLOOD UREA NITROGEN 8.9 mg/dL (7-18); CALCIUM 8.4 mg/dL (8.5-10.1)
[2023-05-07 19:37] LABS: CREATININE 0.7 mg/dL (0.55-1.3)
[2023-05-07 19:38] LABS: BILIRUBIN,TOTAL 0.7 mg/dL (0.2-1); TOT PROT 7.5 g/dl (6.4-8.2)
== END 2023-05-07 20:55 | disposition home or self-care (01) ==
LOC: JER 17:09
PROC: 3E033NZ Introduction of Analgesics, Hypnotics, Sedatives into Peripheral Vein, Percutaneous Approach (ICD-10-PCS; principal; 2023-05-07)
PROC: 3E0333Z Introduction of Anti-inflammatory into Peripheral Vein, Percutaneous Approach (ICD-10-PCS; 2023-05-07)
DX: J01.90 Acute sinusitis, unspecified (principal); M94.0 Chondrocostal junction syndrome [Tietze]; R51.9 Headache, unspecified; R07.2 Precordial pain; R09.81 Nasal congestion; Z20.822 Contact with and (suspected) exposure to COVID-19
CPT/HCPCS: 0241U-QW; 36415; 71046-TC-FY; 80053; 84484; 84703; 85025; 93005; 93010; 99285-25

== ENCOUNTER 2023-09-07 14:10 | Emergency (ER) | payer OTHER ==
[2023-09-07 14:21] VITALS: BP 106/72; PULSE 102; RESP 24; TEMP 98.6; BMI 28.2
== END 2023-09-07 16:13 | disposition home or self-care (01) ==
LOC: JERFT 14:10
DX: R09.81 Nasal congestion (principal); R51.9 Headache, unspecified; L29.9 Pruritus, unspecified; R05.9 Cough, unspecified; J00 Acute nasopharyngitis [common cold]; Z20.822 Contact with and (suspected) exposure to COVID-19
CPT/HCPCS: 0241U-QW; 99283-25

== ENCOUNTER 2023-11-28 10:20 | Emergency (ER) | payer BC, OTHER ==
[2023-11-28 10:39] VITALS: BMI 35.3
[2023-11-28] MEDS ORDERED: SODIUM CHLORIDE 0.9% 500 ML INFUS.BAG IV ONE (12:48)
[2023-11-28] MEDS ORDERED: METOCLOPRAMIDE HCL INJECTION 10 MG/2 ML VIAL IVPUSH ONE (12:48)
[2023-11-28] MEDS ORDERED: ONDANSETRON 4 MG/2 ML VIAL IVPUSH ONE (12:48)
[2023-11-28 13:31] LABS: BASO % 0.4 % (0-2.0); EOS % 0.4 % (0-4.5); HEMATOCRIT 44.3 % (32.4-45.2); HEMOGLOBIN 15.1 GM/dL (10.7-15.3); LYMPH % 29.7 % (8-40); MCH 30.4 pg (25.7-33.7); MEAN CELL VOLUME 89.6 fl (80-96); MEAN PLT VOLUME 8.5 fl (7.5-11.1); MONO % 6.6 % (3.8-10.2); NEUT % 62.9 % (42.8-82.8); PLATELET COUNT 237 10^3/uL (134-434); RBC 4.95 M/mm3 (3.60-5.2); RDW 14.3 % (11.6-15.6); WHITE BLOOD COUNT 7.2 K/mm3 (4.0-10.0)
[2023-11-28 13:34] LABS: EPI CELLS 27 /uL (0-25.1); HYALINE CASTS 9 /uL (0-3.1); URINE APPEARANCE CLOUDY; URINE BACTERIA 671 /uL (0-1359); URINE BILIRUBIN 1+ (NEGATIVE); URINE COLOR DK YELLOW; URINE GLUCOSE (UA) NEGATIVE (NEGATIVE); URINE KETONE 2+ (NEGATIVE); URINE LEUK ESTERASE 1+ (NEGATIVE); URINE NITRITE NEGATIVE (NEGATIVE); URINE PROTEIN 2+ (NEGATIVE); URINE RBC 116 /uL (0-23.9); URINE WBC 151 /uL (0-25.8)
[2023-11-28 13:45] LABS: URINE AMPHETAMINES NEGATIVE (NEGATIVE)
[2023-11-28 13:46] LABS: COCAINE, UR NEGATIVE (NEGATIVE); METHADONE, UR NEGATIVE (NEGATIVE); OPIATES, URI NEGATIVE (NEGATIVE); PHENCYCLIDINE,URINE NEGATIVE (NEGATIVE); URINE BENZODIAZEPINES NEGATIVE (NEGATIVE)
[2023-11-28 13:47] LABS: HCG,QUALITATIVE URINE Negative
[2023-11-28 13:50] LABS: URINE BARBITURATES NEGATIVE (NEGATIVE)
[2023-11-28 13:51] LABS: POTASSIUM 4.3 mmol/L (3.5-5.1)
[2023-11-28 13:55] LABS: CALCIUM 9.7 mg/dL (8.5-10.1)
[2023-11-28 13:56] LABS: ALBUMIN 4.6 g/dl (3.4-5.0); BLOOD UREA NITROGEN 9.3 mg/dL (7-18)
[2023-11-28 14:00] LABS: BILIRUBIN,TOTAL 1.5 mg/dL (0.2-1); CREATININE 0.9 mg/dL (0.55-1.3)
[2023-11-28 14:01] LABS: TOT PROT 8.8 g/dl (6.4-8.2)
[2023-11-28 15:07] VITALS: BP 132/72; PULSE 88; RESP 17; TEMP 98.7
== END 2023-11-28 16:29 | disposition home or self-care (01) ==
LOC: JERFT 10:20
DX: R11.2 Nausea with vomiting, unspecified (principal); R10.13 Epigastric pain; R19.7 Diarrhea, unspecified; F12.90 Cannabis use, unspecified, uncomplicated
CPT/HCPCS: 36415; 76705-TC; 80053; 80307; 81003; 84703; 85025; 99284-25

== ENCOUNTER 2024-06-09 10:47 | Emergency (ER) | payer OTHER ==
[2024-06-09 11:10] VITALS: BP 129/79; PULSE 89; RESP 20; TEMP 99.2; BMI 17.2
[2024-06-09 15:34] LABS: HIV INTERPRETATION NEGATIVE (NEGATIVE)
== END 2024-06-09 13:14 | disposition home or self-care (01) ==
LOC: JERFT 10:47
PROC: 2W3CX1Z Immobilization of Right Lower Arm using Splint (ICD-10-PCS; principal; 2024-06-09)
DX: S69.91XA Unspecified injury of right wrist, hand and finger(s), initial encounter (principal); R05.9 Cough, unspecified; R09.89 Other specified symptoms and signs involving the circulatory and respiratory systems; Z20.822 Contact with and (suspected) exposure to COVID-19; Y04.0XXA Assault by unarmed brawl or fight, initial encounter
CPT/HCPCS: 0241U-QW; 36415; 73130-TC-RT-FY; 86803; 87389; 99284-25

== ENCOUNTER 2024-09-03 09:49 | Emergency (ER) | payer SELFPAY ==
[2024-09-03 10:09] VITALS: BP 126/77; PULSE 84; RESP 18; TEMP 98.8; BMI 23.1
[2024-09-03] MEDS ORDERED: KETOROLAC TROMETHAMINE 30 MG/1 ML VIAL ONE (11:09)
[2024-09-03] MEDS: KETOROLAC TROMETHAMINE 30 MG/1 ML VIAL IM ONE (11:13)
== END 2024-09-03 11:17 | disposition home or self-care (01) ==
LOC: JERFT 09:49
PROC: 3E0133Z Introduction of Anti-inflammatory into Subcutaneous Tissue, Percutaneous Approach (ICD-10-PCS; principal; 2024-09-03)
DX: R05.1 Acute cough (principal); R50.9 Fever, unspecified; Z20.822 Contact with and (suspected) exposure to COVID-19
CPT/HCPCS: 0241U-QW; 99284-25